=== PATIENT | male | born 1995 | race Caucasian/White ===

== ENCOUNTER 2022-08-23 19:54 | Emergency (ER) | payer BC, MEDICAID ==
[~2022-08-23] VITALS: Ht 182.9 cm; Wt 104.3 kg
[2022-08-23 20:18] VITALS: BP_SYST 135
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
[2022-08-23 21:22] LABS: RED CELL DISTRIBUTION WIDTH 12.8 % (9.0-15.0); WHITE BLOOD COUNT (AUTO) 10.7 K/uL (4.8-10.8)
[2022-08-23 21:29] LABS: HEMATOCRIT 47.2 % (36-54); HEMOGLOBIN 16.3 g/dL (14.0-18.0); MEAN CORPUSCULAR HEMOGLOBIN 31 pg (27-31); MEAN CORPUSCULAR HGB CONC 34 % (32-36); MEAN CORPUSCULAR VOLUME 90 fL (79.0-98.0); PLATELET COUNT (AUTO) 187 K/uL (130-430); RED BLOOD CELL COUNT(AUTO) 5.27 MIL/uL (4.2-6.2)
[2022-08-23 21:30] LABS: CALCIUM 9.3 mg/dL (8.4-11.0); CREATININE 0.87 mg/dL (0.55-1.30)
[2022-08-23 21:36] LABS: ALBUMIN 4.2 g/dL (3.4-4.8); TOTAL BILIRUBIN 0.9 mg/dL (0.0-1.0)
[2022-08-23 21:44] LABS: BAND % (MANUAL) 0 % (0-6); BASOPHILS % (MANUAL) 0 % (0-2); EOSINOPHILS % (MANUAL) 1 % (0-7); LYMPHOCYTES % (MANUAL) 14 % (20-46); MONOCYTES % (MANUAL) 5 % (0-11)
--- NOTE | 2022-08-23 22:00 | NUR ---
Patient A/Ox3, VSS, ambulatory, resp even and unlabored. Patient reports pain 0/10 at this time. Patient sitting upright in wheelchair with safety precautions in place. Patient has hx of sezuires and takes rx 500mg Keppra BID; last taken this am. Patient is still postictal at this time and in stable condition. Patient states "I'm okay now, I just feel a little tired right now." Nad noted at this time.
--- NOTE | 2022-08-23 23:00 | NUR ---
HEAVEN Carrasquillo at bedside.
[2022-08-23] MEDS ORDERED: levETIRAcetam 500 MG TABLET PO ONE (23:15)
[2022-08-23 23:20] VITALS: BP_SYST 135
--- NOTE | 2022-08-23 23:20 | NUR ---
Patient given written and verbal discharge instructions and verbalizes understanding. ER MD discussed with patient the results and treatment provided. Patient in stable condition. ID arm band removed. Patient educated on pain management and to follow up with PMD. Pain Scale 0/10. Opportunity for questions provided and answered. Patient in stable condition and accompanied by mother at time of discharge.,
== END 2022-08-23 23:20 | disposition home or self-care (01) ==
LOC: SED 19:54
DX: G40.909 Epilepsy, unspecified, not intractable, without status epilepticus (principal); Z79.899 Other long term (current) drug therapy
CPT/HCPCS: 36415; 70450-TC; 76376; 80053; 85007; 85027; 93005; 99285